=== PATIENT | male | born 1960 | race African-American/Black ===

== ENCOUNTER 2018-01-11 01:10 | Emergency (ER) | payer MEDICAID, OTHER ==
[~2018-01-11] VITALS: Ht 175.3 cm; Wt 75.0 kg
[~2018-01-11 01:10] MED LIST: ATRO2DRO OD; BRIM15OS OD; COSO10OS OD; FOLI1 PO; MOXIOS OP; MULT-29 PO; PREDAOS OD; QUET25TA PO; THIA100T67 PO
[2018-01-11 03:35] VITALS: BP 133/83
== END 2018-01-11 03:38 | disposition home or self-care (01) ==
LOC: EMS 01:11
DX: F31.9 Bipolar disorder, unspecified (principal); F17.210 Nicotine dependence, cigarettes, uncomplicated
CPT/HCPCS: 99285

== ENCOUNTER 2018-04-15 09:56 | Emergency (ER) | payer OTHER ==
[~2018-04-15] VITALS: Ht 175.3 cm; Wt 72.7 kg
[~2018-04-15 09:56] MED LIST changes: -FOLI1 PO; -MULT-29 PO; -QUET25TA PO; -THIA100T67 PO
[2018-04-15 11:04] VITALS: BP 150/75
[2018-04-15] MEDS ORDERED: PROPARACAINE/FLUORESCEIN SOD 0.5-0.25% 0.5 ML OPHTHALMIC SOLUTION OU ONE (12:00)
[2018-04-15] MEDS ORDERED: FLUORESCEIN SODIUM 1 MG STRIP OU ONE (12:00)
[2018-04-15] MEDS ORDERED: CIPROFLOXACIN HCL 0.3% 2.5 ML OPHTHALMIC SOLUTION OD ONE (13:30)
[2018-04-15] MEDS ORDERED: DEXTRAN 70 0.1%/HYPROMELL 0.3% 0.9 ML OPHTHALMIC SOLUTION [PF] OD ONE (13:30)
[2018-04-15] MEDS ORDERED: OFLOXACIN 0.3% 5 ML OPHTHALMIC SOLUTION OD ONE (13:45)
== END 2018-04-15 14:12 | disposition home or self-care (01) ==
LOC: EMS 09:57
DX: T86.8 Complications of other transplanted organs and tissues (principal); F31.9 Bipolar disorder, unspecified; F17.210 Nicotine dependence, cigarettes, uncomplicated; F15.90 Other stimulant use, unspecified, uncomplicated; Z79.899 Other long term (current) drug therapy
CPT/HCPCS: 99284